=== PATIENT | female | born 1960 | race African-American/Black ===

== ENCOUNTER 2021-03-06 13:04 | Emergency (ER) | payer BC, OTHER ==
[~2021-03-06] VITALS: Ht 160 cm; Wt 68.9 kg
[2021-03-06 13:05] VITALS: BP 175/91
[2021-03-06] MEDS ORDERED: IBUPROFEN 800 MG TAB PO ONE (15:45)
== END 2021-03-06 16:39 | disposition home or self-care (01) ==
LOC: ER 13:04
DX: M79.672 Pain in left foot (principal); R42 Dizziness and giddiness; F17.210 Nicotine dependence, cigarettes, uncomplicated; E11.9 Type 2 diabetes mellitus without complications; I10 Essential (primary) hypertension; V43.52XA Car driver injured in collision with other type car in traffic accident, initial encounter; Y93.89 Activity, other specified; Y92.89 Other specified places as the place of occurrence of the external cause; Y99.8 Other external cause status
CPT/HCPCS: 70450; 73630

== ENCOUNTER 2023-04-04 09:24 | Emergency (ER) | payer OTHER ==
[~2023-04-04] VITALS: Ht 160 cm; Wt 71.0 kg
[2023-04-04 10:27] LABS: Basophils # (auto) 0 10 ^3/uL (0-0.2); Eosinophils # (auto) 0.2 10 ^3/uL (0-0.8); Eosinophils % (auto) 2.9 % (0.0-7.0); Hematocrit 42.4 % (36.0-46.0); Hemoglobin 14.1 g/dL (12.2-16.2); Lymphocytes # (auto) 1.4 10 ^3/uL (0.4-5.4); Lymphocytes % (auto) 21.4 % (10.0-50.0); Mean Corpuscular Hemoglobin 30.7 pg (28.0-32.0); Mean Corpuscular Hgb Conc. 33.2 g/dL (32.0-36.0); Mean Corpuscular Volume 92.5 fL (80.0-100.0); Monocytes # (auto) 0.4 10 ^3/uL (0-1.3); Monocytes % (auto) 6.1 % (0.0-12.0); Neutrophils # (auto) 4.7 10 ^3/uL (1.6-8.6); Neutrophils % (auto) 69.6 % (37.0-80.0); Nucleated Red Blood Cells % 0.1 %; Red Blood Cells 4.58 10^6/uL (4.0-5.20); Red Cell Distribution Width 14.1 % (11.8-14.3); White Blood Cell 6.7 10^3/uL (4.4-10.8)
[2023-04-04 10:35] LABS: Albumin 3.8 g/dL (3.4-5.0); Calcium 8.8 mg/dL (8.5-10.1); Potassium 3.6 mmol/L (3.5-5.1)
[2023-04-04 10:40] LABS: BUN/Creatinine Ratio 12.6 (10.0-20.0); Bilirubin, Total 0.8 mg/dL (0.2-1.0); Total Protein 7.5 g/dL (6.4-8.2)
[2023-04-04] MEDS ORDERED: TRAM50TA2 PO (10:56)
[2023-04-04 11:08] VITALS: BP 152/86; PULSE 86; RESP 17; TEMP 97.9; O2SAT 99
[2023-04-04 12:01] LABS: Urine Bacteria FEW /hpf (None Seen); Urine Blood Negative /uL (Negative); Urine Mucus FEW (None Seen); Urine Specific Gravity 1.024 (1.001-1.035); Urine WBC 34 /hpf (0 - 5)
== END 2023-04-04 11:10 | disposition home or self-care (01) ==
LOC: ER 09:24
DX: R10.9 Unspecified abdominal pain (principal); R11.2 Nausea with vomiting, unspecified; E11.9 Type 2 diabetes mellitus without complications; E78.5 Hyperlipidemia, unspecified; I10 Essential (primary) hypertension; I25.2 Old myocardial infarction
CPT/HCPCS: 36415; 74176; 80053; 81001; 83690; 85025

== ENCOUNTER 2025-05-16 16:48 | Emergency (ER) | payer MEDICARE, OTHER ==
[~2025-05-16] VITALS: Ht 160 cm; Wt 71.0 kg
[~2025-05-16 16:48] MED LIST: TRAM50TA2 PO
--- NOTE | 2025-05-16 19:16 | DVH ---
INDICATION: pain left hip, fall injury COMPARISON: None TECHNIQUE: CT of the right was performed without contrast. Volume transverse images were obtained and reconstructed in multiple planes using bone and soft tissue algorithms. CONTRAST: None Radiation Dose Information: CT Dose: CTDI volume is 7.37 mGy. Dose-length product is 232.5 mGy*cm FINDINGS: The alignment is normal. The joint spaces are normal. There is no fracture, dislocation, or focal osseous lesions. The soft tissues are normal. IMPRESSION: 1. No acute fractures. 2. Superior and inferior pubic ramus is intact. 3. All CT scans at this medical facility are performed using dose modulation techniques as appropriat e to a performed exam including the following: Automated exposure control was utilized; adjustment of the MA and/or KV according to patient size; and use of iterative reconstruction technique.
--- NOTE | 2025-05-16 19:34 | ED.PDOC ---
Sridevi. trauma (HPI) HPI Comments 64-year-old female who came to ER for fall injury. [place]pped and fell badly on her left side. Patient complaining of left hip pain. Patient was still able to stand up with the assistance. Denies any other injuries. Chief Complaint: Fall Injury Time Seen by MD: 19:33 Primary Care Provider: DIMITRI Burns notes: Nurses Notes Allergies: Coded Allergies: NO KNOWN ALLERGIES (Unverified , 03/06/21) Home Meds Active Scripts Tramadol Hcl (Tramadol Hcl) 50 Mg Tab, 50 MG PO Q6HP PRN, #30 TAB Prov:CAMELIA SCHREIBER MD 05/16/25 Tramadol Hcl (Tramadol Hcl) 50 Mg Tab, 50 MG PO Q6HP PRN, #20 TAB Prov:CAMELIA SCHREIBER MD 05/16/25 Tramadol Hcl (Tramadol Hcl) 50 Mg Tab, 50 MG PO Q6HP PRN for 5 Days, #20 TAB Prov:RACH DOLAN MD 04/04/23 Information Source: Patient Mode of Arrival: EMS Severity: Moderate Timing: Hours Duration: Since onset Location: (L) Hip Mechanism: Fall Past Medical History PAST MEDICAL HISTORY: DM, High Lipids, HTN, [place] Surgical History: BLASTING [employer] History: No Pertinent [employer]ING [employer] History Family History Family History: Reviewed,noncontributory to illness, Family hx of DM Social History Smoker: Cigarettes Alcohol: Occasionally Drugs: Denies Drug Use Lives In: Home Constitutional: denies: chills, diaphoresis, fatigue, fever, malaise, sweats, weakness, others EENTM: denies: blurred vision, double vision, ear bleeding, ear discharge, ear drainage, ear pain, ear ringing, eye pain, eye redness, hearing loss, mouth pain, mouth swelling, nasal discharge, nose bleeding, nose congestion, nose pain, photophobia, tearing, throat pain, throat swelling, voice changes, others Respiratory: denies: cough, hemoptysis, orthopnea, SOB at rest, shortness of breath, SOB with excertion, stridor, wheezing, others Cardiovascular: denies: chest pain, dizzy spells, diaphoresis, Dyspnea on e xertion, edema, irregular heart beat, left arm pain, lightheadedness, palpitations, PND, syncope, others Gastrointestinal: denies: abdomen distended, abdominal pain, blood streaked bowels, constipated, diarrhea, dysphagia, difficulty swallowing, hematemesis, melena, nausea, poor appetite, poor fluid intake, rectal bleeding, rectal pain, vomiting, others Genitourinary: denies: abnormal vagina bleeding, burning, dyspareunia, dysuria, flank pain, frequency, hematuria, incontinence, pain, , vagina discharge, urgency, others Neurological: denies: dizziness, fainting, headache, left sided numbness, left sided weakness, numbness, paresthesia, pre-existing deficit, right sided numbness, right sided weakness, seizure, speech problems, tingling, tremors, weakness, others Musculoskeletal: denies: back pain, gout, joint pain, joint swelling, muscle pain, muscle stiffness, neck pain, others Integumetry: denies: bruises, change in color, change in hair/nails, dryness, laceration, lesions, lumps, rash, wounds, others Allergic/Immunocompromised: denies: Difficulty Healing, Frequent Infections, Hives, Itching, others Hematologic/Lymphatic: denies: anemia, blood clots, easy bleeding, easy bruising, swollen glands, others Endocrine: denies: excessive hunger, excessive sweating, excessive thirst, excessive urination, flushing, intolerance to cold, intolerance to heat, unexplained weight gain, unexplained weight loss, others Psychiatric: denies: anxiety, bipolar disorder, depression, hopeless, panic disorder, schizophrenia, sleepless, suicidal, others Physical Exam General Appearance: No Apparent Distress, Normal HEENT: Normal ENT Inspection, Pharynx Normal, TMs Normal Neck: Full Range of Motion, Non-Tender, Normal, Normal Inspection Respiratory: Chest Non-Tender, Lungs Clear, No Accessory Muscle Use, No Respiratory Distress, Normal Breath Sounds Cardiovascular: No Edema, No JVD, No Murmur, No Gallop, Normal Peripheral Pulses, Regular Rate/Rhythm Breast Exam: Deferred Gastrointestinal: No Organomegaly, Non Tender, No Pulsatile Mass, Normal Bowel Sounds, Soft Genitalia: Deferred Pelvic: Deferred Rectal: Deferred Extremities: No calf tenderness, Normal capillary refill, Normal inspection, Normal range of motion, Non-tender, No pedal edema Musculoskeletal : Apperance: Normal Neurologic: Alert, panel sewer II-XII nml as Tested, No Motor Deficits, Normal Affect, Normal Mood, No Sensory Deficits Cerebellar Function: Normal Reflexes: Normal Skin: Dry, Normal Color, Warm Lymphatic: No Adenopathy Was a procedure done? Was a procedure done?: No Differential Diagnosis Multiple Trauma: Fractures, Spine Injury X-Ray, Labs, Meds, VS Vital Signs Date Time Temp Pulse Resp B/P (MAP) Pulse Ox O2 Delivery O2 Flow Rate FiO2 05/16/25 20:01 93 18 93 Room Air 05/16/25 20:01 98.1 80 18 190/92 (124) 93 98.1 05/16/25 16:48 98.0 96 18 185/92 96 98.0 PROCEDURE(s): LHPCT - CT L HIP WITH OUT CONTRAST REASON: pain left hip, fall injury ORDER NUMBER(s): [id number], ACCESSION NUMBER(s): [id number] INDICATION: pain left hip, fall injury COMPARISON: None TECHNIQUE: CT of the right was performed without contrast. Volume transverse images were obtained and reconstructed in multiple planes using bone and soft tissue algorithms. CONTRAST: None Radiation Dose Information: CT Dose: CTDI volume is 7.37 mGy. Dose-length product is 232.5 mGy*cm FINDINGS: The alignment is normal. The joint spaces are normal. There is no fracture, dislocation, or focal osseous lesions. The soft tissues are normal. IMPRESSION: 1. No acute fractures. 2. Superior and inferior pubic ramus is intact. 3. All CT scans at this medical facility are performed using dose modulation techniques as appropriate to a performed exam including the following: Automated exposure control was utilized; adjustment of the MA and/or KV according to patient size; and use of iterative reconstruction technique. Time of 1ST Reevaluation: 19:30 Reevaluation 1ST: Unchanged Patient Education/Counseling: Diagnosis, Treatment Family Education/Counseling: No Family Present Departure 1 Departure Time of Disposition: 21:30 Impression: Primary Impression: Contusion of left hip Disposition: HOME / SELF CARE / HOMELESS Condition: Stable e-Prescriptions Tramadol Hcl (Tramadol Hcl) 50 Mg Tab 50 MG PO Q6HP PRN, #30 TAB Prov: CAMELIA SCHREIBER MD 05/16/25 Tramadol Hcl (Tramadol Hcl) 50 Mg Tab 50 MG PO Q6HP PRN, #20 TAB Prov: CAMELIA SCHREIBER MD 05/16/25 Discharged With: Self Critical Care Note Critical Care Time?: No Stability Stability form required: No Heart Score Heart Score: Heart Score Response (Comments) Value History N/A 0 EKG N/A 0 Age N/A 0 Risk Factors N/A 0 Troponin N/A 0 Total 0 I personally scribed for CAMELIA SCHREIBER MD ([email or web address]) on 05/16/25 at 19:34. Electronically submitted by Jake Du ([email or web address]). CAMELIA SCHREIBER MD May 16, 2025 19:34
[2025-05-16] MEDS ORDERED: TRAM50TA2 PO (19:37)
[2025-05-16 20:01] VITALS: BP 190/92; PULSE 93; RESP 18; TEMP 98.1; O2SAT 93
== END 2025-05-16 20:06 | disposition home or self-care (01) ==
LOC: ER 16:48 → EDBD 16:48 → ER 20:06
DX: S70.02XA Contusion of left hip, initial encounter (principal); W01.0XXA Fall on same level from slipping, tripping and stumbling without subsequent striking against object, initial encounter; Y93.89 Activity, other specified; Y92.89 Other specified places as the place of occurrence of the external cause; Y99.8 Other external cause status
CPT/HCPCS: 73700